=== PATIENT | female | born 1985 | race Caucasian/White ===

== ENCOUNTER 2020-10-18 23:58 | Emergency (ER) | payer OTHER, SELFPAY ==
--- NOTE | 2020-10-19 02:02 | ER ---
Nurse's Notes [facility] Name: Hailey Perera Age: 35 yrs Sex: Female : 1985 Arrival Date: 10/19/2020 Time: 00:10 Bed 6 Private MD: Diagnosis: Streptococcal pharyngitis Presentation: 10/19 00:16 Chief complaint: Patient states: Sore throat and swollen tonsils for approx 2 days with bb possible fever. Coronavirus screen: Client denies travel out of the [place] in the last 14 days. Ebola Screen: Patient negative for fever greater than or equal to 101.5 degrees Fahrenheit, and additional compatible Ebola Virus Disease symptoms Patient denies exposure to infectious person. Patient denies travel to an Ebola-affected area in the 21 days before illness onset. Initial Sepsis Screen: Does the patient meet any 2 criteria? No. Patient's initial sepsis screen is negative. Does the patient have a suspected source of infection? No. Patient's initial sepsis screen is negative. Risk Assessment: Do you want to hurt yourself or someone else? Patient reports no desire to harm self or others. Onset of symptoms was October 16, 2020. 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 - Social history:: Smoking status: Patient denies any tobacco usage or history of. Screenin:31 Abuse screen: Denies threats or abuse. Nutritional screening: No deficits noted. ea Tuberculosis screening: No symptoms or risk factors identified. Fall Risk None identified. Assessment: 01:40 General: Appears uncomfortable, Behavior is appropriate for age. Pain: Complains of ea pain in throat. Neuro: Level of Consciousness is awake, alert, obeys commands, Oriented to person, place, time. Cardiovascular: Patient's skin is warm and dry. Respiratory: Airway is patent Respiratory effort is even, unlabored, Respiratory pattern is regular, symmetrical. Derm: Skin is pink, warm \T\ dry. 02:21 Reassessment: Patient and/or family updated on plan of care and expected duration. Pain ea level reassessed. Patient is alert, oriented x 3, equal unlabored respirations, skin warm/dry/pink. Discharge instruction given to patient verbalized the understanding of instruction. Pt left ED ambulatory tolerating well. Vital Signs: 00:16 BP 146 / 87; Pulse 91; Resp 17; Temp 98.7; Pulse Ox 100% on R/A; Weight 83.91 kg; bb Height 5 ft. 3 in. (160.02 cm); Pain 8/10; 00:16 Body Mass Index 32.77 (83.91 kg, 160.02 cm) bb ED Course: 00:10 Patient arrived in ED. es 00:18 Triage completed. bb 00:19 Arm band placed on right wrist. bb 01:27 Praneeth Vargas MD is Attending Physician. Audi 01:30 Caleb Mullen is Primary Nurse. ad5 01:32 Patient has correct armband on for positive identification. Bed in low position. Call ea light in reach. 02:20 No provider procedures requiring assistance completed. Patient did not have IV access ea during this emergency room visit. Administered Medications: 01:53 Drug: Bicillin L-A (penicillin G Benzathine) 1.2 million units Route: IM; Site: right ea deltoid; 02:20 Follow up: Response: No adverse reaction ea 01:53 Drug: predniSONE 60 mg Route: PO; ea 02:20 Follow up: Response: No adverse reaction ea Outcome: 02:01 Discharge ordered by . [facility] 02:20 Discharged to home ambulatory, with family. ea 02:20 Condition: stable 02:20 Discharge instructions given to patient, Instructed on discharge instructions, follow up and referral plans. Demonstrated understanding of instructions, follow-up care. 02:24 Patient left the ED. ea Signatures: Alexandra Morales Brenda RN Mayuri Apple RN RN ea Holmes, Maurice, MD MD Caleb Melchor ad5
--- NOTE | 2020-10-19 02:02 | EDPHYS ---
Physician Documentation [facility] Name: Hailey Perera Age: 35 yrs Sex: Female : 1985 Arrival Date: 10/19/2020 Time: 00:10 Bed 6 Private MD: ED Physician Praneeth Vargas HPI: 10/19 01:35 This 35 yrs old Female presents to ER via Ambulatory with complaints of Sore mh7 Throat, Difficulty Swallowing. 01:35 The patient presents with sore throat. The patient describes throat pain as constant. mh7 Onset: The symptoms/episode began/occurred 2 day(s) ago. Severity of symptoms: At their worst the symptoms were moderate, last night, in the emergency department the symptoms have improved, moderately. Modifying factors: The symptoms are alleviated by over the counter medications, NSAIDs, the symptoms are aggravated by nothing. Associated signs and symptoms: Pertinent positives: earache, Sore throat Pertinent negatives chest pain, chills, cough, diarrhea, dysphagia, fever, flu-like symptoms, headache, nausea, rhinorrhea, shortness of breath, vomiting. 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 - Social history:: Smoking status: Patient denies any tobacco usage or history of. ROS: 01:35 Constitutional: Negative for fever, chills, and weight loss, Eyes: Negative for injury, mh7 pain, redness, and discharge, Neck: Negative for injury, pain, and swelling, Cardiovascular: Negative for chest pain, palpitations, and edema, Respiratory: Negative for shortness of breath, cough, wheezing, and pleuritic chest pain, Abdomen/GI: Negative for abdominal pain, nausea, vomiting, diarrhea, and constipation, Back: Negative for injury and pain, : Negative for injury, bleeding, discharge, and swelling, MS/Extremity: Negative for injury and deformity, Skin: Negative for injury, rash, and discoloration, Neuro: Negative for headache, weakness, numbness, tingling, and seizure, Psych: Negative for depression, anxiety, suicide ideation, homicidal ideation, and hallucinations, Allergy/Immunology: Negative for hives, rash, and allergies, Endocrine: Negative for neck swelling, polydipsia, polyuria, polyphagia, and marked weight changes, Hematologic/Lymphatic: Negative for swollen nodes, abnormal bleeding, and unusual bruising. Exam: 01:35 Constitutional: This is a well developed, well nourished patient who is awake, alert, mh7 and in no acute distress. Head/Face: Normocephalic, atraumatic. Eyes: Pupils equal round and reactive to light, extra-ocular motions intact. Lids and lashes normal. Conjunctiva and sclera are non-icteric and not injected. Cornea within normal limits. Periorbital areas with no swelling, redness, or edema. 01:35 Neck: Trachea midline, no thyromegaly or masses palpated, and no cervical lymphadenopathy. Supple, full range of motion without nuchal rigidity, or vertebral point tenderness. No Meningismus. Chest/axilla: Normal chest wall appearance and motion. Nontender with no deformity. No lesions are appreciated. Cardiovascular: Regular rate and rhythm with a normal S1 and S2. No gallops, murmurs, or rubs. Normal PMI, no JVD. No pulse deficits. Respiratory: Lungs have equal breath sounds bilaterally, clear to auscultation and percussion. No rales, rhonchi or wheezes noted. No increased work of breathing, no retractions or nasal flaring. Abdomen/GI: Soft, non-tender, with normal bowel sounds. No distension or tympany. No guarding or rebound. No evidence of tenderness throughout. Back: No spinal tenderness. No costovertebral tenderness. Full range of motion. Skin: Warm, dry with normal turgor. Normal color with no rashes, no lesions, and no evidence of cellulitis. MS/ Extremity: Pulses equal, no cyanosis. Neurovascular intact. Full, normal range of motion. Neuro: Awake and alert, GCS 15, oriented to person, place, time, and situation. Cranial nerves II-XII grossly intact. Motor strength 5/5 in all extremities. Sensory grossly intact. Cerebellar exam normal. Normal gait. 01:35 ENT: External ear(s): are unremarkable, Ear canal(s): are normal, clear, TM's: are normal, Nose: is normal, Mouth: is normal, Posterior pharynx: Airway: normal, Tonsils: bilaterally enlarged, with erythema, with exudate, Uvula: normal, swelling, that is mild, erythema, that is moderate, exudate, that is moderate, peritonsillar mass, is not appreciated, pooling of secretions, is not appreciated, Dental exam: normal, Voice: is normal. Vital Signs: 00:16 BP 146 / 87; Pulse 91; Resp 17; Temp 98.7; Pulse Ox 100% on R/A; Weight 83.91 kg; bb Height 5 ft. 3 in. (160.02 cm); Pain 8/10; 00:16 Body Mass Index 32.77 (83.91 kg, 160.02 cm) bb MDM: 02:00 Differential diagnosis: group A strep tonsillitis, peritonsillar abscess pharyngitis, mh7 tonsillitis, viral syndrome. Data reviewed: vital signs, nurses notes, lab test result(s), Flu: negative strep positive. Counseling: I had a detailed discussion with the patient and/or guardian regarding: the historical points, exam findings, and any diagnostic results supporting the discharge/admit diagnosis, lab results, the need for outpatient follow up, to return to the emergency department if symptoms worsen or persist or if there are any questions or concerns that arise at home. Response to treatment: the patient's symptoms have markedly improved after treatment. 02:01 Patient medically screened. [facility] 10/19 00:21 Order name: Strep 10/19 00:21 Order name: Flu; Complete Time: kb 10/19 00:22 Order name: Group A Streptococcus Rapid Sc; Complete Time: : EDMS Administered Medications: 01:53 Drug: Bicillin L-A (penicillin G Benzathine) 1.2 million units Route: IM; Site: right ea deltoid; 02:20 Follow up: Response: No adverse reaction ea :53 Drug: predniSONE 60 mg Route: PO; ea 02:20 Follow up: Response: No adverse reaction ea Disposition Summary: 10/19/20 02:01 Discharge Ordered Location: Home [facility] Problem: [facility] Symptoms: have improved [facility] Condition: Stable [facility] Diagnosis - Streptococcal pharyngitis [facility] Followup: [facility] - With: Private Physician - When: 1 - 2 days - Reason: Worsening of condition, Recheck today's complaints, Continuance of care, Re-evaluation by your physician Discharge Instructions: - Discharge Summary Sheet [facility] - Strep Throat, Adult, [id number] [facility] Forms: - Medication Reconciliation Form [facility] - Thank You Letter [facility] - Antibiotic Education [facility] - Prescription Opioid Use [facility] Signatures: Dispatcher [employer] Kathrine Garcia RN RN bb Antunez, Elena, RN RN ea Holmes, Maurice, MD MD [facility]
[2020-10-19] MEDS ORDERED: predniSONE 20 MG TAB ONE (02:07)
[2020-10-19] MEDS ORDERED: PEN G BENZ LA 1.2MU/2ML SYRINGE IM ONE (02:08)
[2020-10-19 02:29] VITALS: BP 146/87; TEMP 98.7; O2SAT 100
== END 2020-10-19 02:24 | disposition home or self-care (01) ==
LOC: ER 23:58
DX: J02.0 Streptococcal pharyngitis (principal)
CPT/HCPCS: 87081; 87804; 96372; 99283; J0561; J7512